=== PATIENT | female | born 1945 | race Two or more races ===

== ENCOUNTER 2017-01-02 05:32 | Observation (INO) | payer MEDICARE, MEDICAID ==
[~2017-01-02] VITALS: Ht 167.6 cm; Wt 113.0 kg
--- NOTE | 2017-01-04 08:06 | HP ---
ADMIT: 01/02/2017 RM/LOC: 508 [facility] MR#: [id number] 2620 [facility] [address] [place] [id number] ANKITA CARRILLO [address] [place] [address] History and Physical SEX: F AGE: 71 : 1945 DATE OF SERVICE: 01/02/2017 CHIEF COMPLAINT: Right mid back pain. HISTORY: A 71-year-old female, presented to the emergency room by ambulance with pain which she describes as severe and sharp. She points to the right mid back area. It is definitely not over the spine. It was severe enough she called the ambulance and came to the emergency room because she could not move. She was evaluated by Dr. Cameron and then eventually by Dr. Mae. This is somewhat different than the pain she presented to our office on December 18 which was more in the right lower back. That was thought to be a lumbar strain and she was treated with Toradol and Tylenol and told to try to wait things out. She has not had chronic back pain, but she has had chronic pain in other joints. At any rate, yesterday she was lifting some laundry and then the pain got much more severe now to the point where she went to the emergency room. In the emergency room, there was concern that she could have right- sided biliary colic, but urine studies showed no significant blood and she had less abdominal CT for renal colic which was negative for stones or any other significant pathology. Various laboratory studies were also unrevealing. She since had lumbar and thoracic spine films which show only some minimal changes of degenerative joint disease and some minor spondylolisthesis at L5-S1. They gave her pain medication in the emergency room and she has since vomited that out. She said she has not felt recently ill in any way. She is diabetic and her blood sugars have not been significantly out of line as of late. She denies also for me abdominal pain. PAST MEDICAL HISTORY: Chronic medical problems include type 2 diabetes; dyslipidemia; obesity; osteoarthritis of various joints, most notably her knees; vitamin D deficiency. PRIOR OPERATIONS: She has had prior total knee arthroplasty and prior shoulder surgery of some type. SOCIAL HISTORY: She is single, lives alone. Does not smoke or drink. FAMILY HISTORY: Positive of depression, diabetes, hypertension, and heart disease in 1st degree relatives. ALLERGIES: NONE. MEDICATIONS: Recently: 1. Tramadol b.i.d. p.r.n. 2. Glipizide 5 mg daily. 3. Metformin 500 mg b.i.d. 4. Vitamin D 2000 units daily. 5. Lipitor 20 mg nightly. 6. Recently extra-strength Tylenol. REVIEW OF SYSTEMS: CONSTITUTIONAL: No fever, no chills. ADMIT: 01/02/2017 RM/LOC: 508 [facility] MR#: [id number] [address] [place] [id number] ANKITA CARRILLO [address] [place] [address] History and Physical SEX: F AGE: 71 : 1945 ENT: No acute complaints. EYES: No changes in vision. RESPIRATORY: No shortness of breath. No cough. CV: No chest pain. No cardiac related symptoms. NEURO: No syncope or focal neurologic symptoms. No leg pain. No leg numbness. PSYCH: No anxiety or depression by history. GI: No abdominal pain, vomiting but not before she got the pain medications. : She has some stress incontinence when she vomits and at other times. No other genitourinary complaints. SKIN: No acute problems. HEMATOLOGIC: No history of bleeding or history of blood clots. PHYSICAL EXAMINATION: GENERAL: Reveals an uncomfortable female sitting in the bed, unable to get out of the bed. With encouragement, she can sit up in bed, which she could not do it in the emergency room. This is an obese female. VITAL SIGNS: Temp 97.1, pulse 59, respirations 12, BP 171/83, and O2 saturation 95%. Blood pressure felt to be up most likely due to pain and distress and vomiting. HEENT: Oral mucous membranes are moist. No oral lesions noted. No nasal discharge. Hearing intact. Eyes pupils are equal and reactive. Sclerae are not icteric. NECK: Freely movable without pain. LUNGS: Clear to auscultation. Normal respiratory effort. HEART: Regular rhythm. I do not hear a murmur. ABDOMEN: Obese female, nontender to palpation. PELVIC: Not performed. RECTAL: Not performed. BACK: When I palpate up and down her spine, no pain. When I tap on her right mid back, a little bit of discomfort. Also gets midback pain when she rotates or to a lesser extent, forward flexes. Pain is consistently worse in the right mid back pain than anywhere else. SKIN: No rashes. EXTREMITIES: Upper extremities, no gross abnormalities. Lower extremities, probably some minor edema, postop changes of knees. NEURO: Negative straight leg raise. I could not demonstrate any focal ADMIT: 01/02/2017 RM/LOC: 508 [facility] MR#: [id number] [address] [id number] ANKITA CARRILLO [address] [place] [address] History and Physical SEX: F AGE: 71 : 1945 weakness in the legs. Limited exam due to pain. Did not test reflexes. PSYCH: She is little anxious, she is a little tearful from pain and vomiting. Not overtly depressed. IMPRESSION: Acute mid back pain, probably a muscle strain. DISCUSSION: She is in OPO bed since she is immobile. We will get Physical therapy involved to try to manage her pain with some combination of Tylenol, injectable Toradol and/or tramadol. Also lorazepam for anxiety and/or nausea. Try to get her up in the chair later today. If she can accomplish that, we could let her go home tomorrow. Discussed all this with the patient with first aid instructor present. Jim Erazo MD/ suzy JOB #: [id number] CC: Jim Erazo, Attending Physician Jim Erazo, Family Physician
[2017-01-05] MEDS ORDERED: LIPITOR DPS20 MG PO (17:19)
[2017-01-05] MEDS ORDERED: GLUCOPHAGE-DPS500 MG PO (17:19)
[2017-01-05] MEDS ORDERED: ULTRAM DPS50 MG PO (17:19)
[2017-01-05] MEDS ORDERED: GLUCOTROL DPS5 MG PO (17:19)
[2017-01-05] MEDS ORDERED: VITAMIN D-32000 UNI1 PO (17:20)
[2017-01-05] MEDS ORDERED: TYLENOL DPS325 MG PO (17:20)
[2017-01-05] MEDS ORDERED: THERA1 EACH PO (17:21)
[2017-01-05] MEDS ORDERED: PEPCID DPS20 MG PO (17:21)
[2017-01-05] MEDS ORDERED: OMNICEF DPS300 MG PO (17:22)
[2017-01-05] MEDS ORDERED: INDOCIN DPS PO (17:22)
--- NOTE | 2017-01-08 10:35 | ER ---
ADMIT: 01/02/2017 RM/LOC: ER [facility] MR#: [id number] [address] [facility] [address] [place] [id number] ANKITA CARRILLO [address] [place] [address] Emergency Room Report SEX: F AGE: 71 : 1945 DATE: 01/02/2017 ADDENDUM: This 71-year-old morbidly obese lady coming in with back pain. Initially worked up by Dr. Cameron. I will refer you to his T-sheet. She has CBC and chemistries are negative. Urine will be cultured to see if there is anything there. She has no fever. Really, flank pain per Se. A CT of the abdomen was negative. At this time, it appears to be: 1. Back pain, acute on chronic. 2. Morbid obesity. TREATMENT: I have spoken with Dr. Erazo. He will admit her for pain control. We are unable to get her off the bed even with Dilaudid IV. We also will get a plain film of her spine before she goes upstairs. Again, there has been no trauma with this, she has had this for some time. So, this is back pain acute on chronic, unknown etiology. CONDITION ON DISCHARGE: Fair. Ry Mae MD/ immanuell JOB #: [id number] CC: Taras Cameron MD, Attending Physician Jim Erazo MD, Family Physician
== END 2017-01-04 13:25 | disposition home or self-care (01) ==
LOC: ER 05:32 → 5MS 08:50 → 6PED 01-03 15:35
PROVIDERS: ADMIT Family Medicine
DX: S29.012A Strain of muscle and tendon of back wall of thorax, initial encounter (principal); N39.0 Urinary tract infection, site not specified; E11.9 Type 2 diabetes mellitus without complications; E78.5 Hyperlipidemia, unspecified; Z79.899 Other long term (current) drug therapy; Z79.891 Long term (current) use of opiate analgesic; Z98.890 Other specified postprocedural states; Z96.659 Presence of unspecified artificial knee joint